=== PATIENT | female | born 1955 | race Caucasian/White ===

== ENCOUNTER 2016-10-16 16:52 | Emergency (ER) | payer BC ==
[~2016-10-16] VITALS: Ht 162.6 cm; Wt 56.7 kg
[2016-10-16] MEDS ORDERED: MODAFINIL (17:00)
--- NOTE | 2016-10-16 17:14 | NUR ---
1706-Patient is seen drinking soda, NAD, pending MD evaluation.
[2016-10-16] MEDS ORDERED: IBUPROFEN 600 MG TABLET PO ONE (17:15)
[2016-10-16] MEDS ORDERED: ONDANSETRON ODT 4 MG TAB.RAPDIS SL ONE (17:15)
[2016-10-16] MEDS ORDERED: ONDANSETRON ODT 4 MG TAB.RAPDIS ONE (17:22)
[2016-10-16] MEDS ORDERED: IBUPROFEN 600 MG TABLET ONE (17:22)
--- NOTE | 2016-10-16 18:50 | NUR ---
Crutches dispensed. Pt instructed on proper use of crutches. Patient able to demonstrate correct use of crutches. Patient discharged to home in stable conditon. Written and verbal after care instructions given to patient. Patient verbalizes understanding of instructions.
== END 2016-10-16 19:02 | disposition home or self-care (01) ==
LOC: ER 16:52
DX: S92.351A Displaced fracture of fifth metatarsal bone, right foot, initial encounter for closed fracture (principal); F41.9 Anxiety disorder, unspecified; F32.9 Major depressive disorder, single episode, unspecified; Z88.8 Allergy status to other drugs, medicaments and biological substances; Z88.2 Allergy status to sulfonamides; X58.XXXA Exposure to other specified factors, initial encounter; Y93.01 Activity, walking, marching and hiking; Y99.8 Other external cause status; Y92.89 Other specified places as the place of occurrence of the external cause
CPT/HCPCS: 73630; A4663; Q0162

== ENCOUNTER 2016-11-19 09:31 | Inpatient (IN) | payer BC, OTHER ==
[~2016-11-19] VITALS: Ht 162.6 cm; Wt 56.7 kg
[~2016-11-19 09:31] MED LIST: MODAFINIL
--- NOTE | 2016-11-27 20:21 | NUR ---
Admission Note Pt is a 61 year old female admitted to [facility] on 11/27/2016 for Benzo/Subutex/ETOH dependence, arrived on the unit at 2120. Pt reports allergies to Quinolones and Sulfa antibiotics, denies seizure history. Pt was able to provide urine drug screen. Upon admission CIWA 3 and COWS 3, BP: 97/66 HR:87, RR:16, SpO2:96% T:97.9, no pain 0/10, Ht: 5'4", Wt: 125 lbs. Pt reports her primary care provider is Dr. Bhavna Dixon in [place] and her Psychiatrist is Dr. Diaz Cheema in [facility]. Pt reports she does not. Pt denies being hospitalized within the past 30 days. Substance abuse History is as follows: 1. Valium 40mg/daily, last intake of 20mg on 11/27/2016, at this rate for the past 6 weeks. 2. Subutex "An 8th"/daily, last intake of "An 8th" on 11/27/2016, at this rate for the past 6 weeks. 3. Wine "5 glasses of wine/daily, last intake of "2 glasses of wine" on 11/27/2016. When pt does not use, she reports s/s of "I feel sweaty all over, and my entire body hurts, irritability, and a lot of anxiety". Pt reports longest sobriety period was for 2-3 months in 2016. Pt trigger to use is d/t her break up 4 years ago with her boyfriend, pt also states her stressful job causes her to use. Treatment history is as follows: 1. [facility] [place], 2016 for 4 days 2. [facility], 2015 6 days 3. Home Detox by Dr. Villatoro, 2017 PMH: Anxiety, appendectomy, double mastectomy & breast reconstruction in 2006, Hepatic Adenoma (benign tumor) 2007, Hysterectomy and Fibroidectomy. Home medications reconciled. Upon assessment, pt presents with anxiety, fatigue, skin noted to be flushed, SOB/chest pain, face flushed, skin intact - clammy/sweaty. Pt wears a boot on right foot d/t tripping over rocks while walking on rocks about 1 and half ago. Pt ambulates with steady gait. Pt denies SI/HI. Educational information provided and left at beside, pt oriented to room and encouraged to notify staff with any concerns. Safety measures in place, call light within reach, side rails up x2, bed locked and in low position. Will continue to monitor.
--- NOTE | 2016-11-27 21:00 | NUR ---
Pre-Admission Note Explained unit protocols regarding medications and vital signs Q4H. Pt verbalizes understanding. [facility], also reported use of Subutex, & ETOH. BP:97/66 HR:87, RR:16, SpO2:96% T:97.9, no pain 0/10, Ht: 5'4", Wt: 125 lbs. Will continue with admission upon pt arrival on the unit.
[2016-11-27 21:20] VITALS: BP 97/66
[2016-11-27] MEDS ORDERED: MAG HYDROX/AL HYDROX/SIMETH 30 ML LIQUID UDC PO PRN (23:00)
[2016-11-27] MEDS ORDERED: diphenhydrAMINE 50 MG CAPSULE PO PRN (23:00)
[2016-11-27] MEDS ORDERED: DICYCLOMINE HCL 20 MG TABLET PO PRN (23:00)
[2016-11-27] MEDS ORDERED: LORAZEPAM 2 MG/1 ML VIAL IM PRN (23:00)
[2016-11-27] MEDS ORDERED: ACETAMINOPHEN 325 MG TABLET PO PRN (23:00)
[2016-11-27] MEDS ORDERED: ONDANSETRON ODT 4 MG TAB.RAPDIS SL PRN (23:00)
[2016-11-27] MEDS ORDERED: LOPERAMIDE HCL 2 MG CAPSULE PO PRN (23:00)
[2016-11-27] MEDS ORDERED: MAGNESIUM HYDROXIDE 30 ML LIQUID UDC PO PRN (23:00)
[2016-11-27] MEDS ORDERED: THIAMINE HCL 200 MG/2 ML VIAL IM ONE (23:00)
[2016-11-27] MEDS ORDERED: LORAZEPAM 1 MG TABLET PO PRN ×2 (23:00)
[2016-11-28] VITALS: BP 90/59
--- NOTE | 2016-11-28 | NUR ---
Vital Signs BP 90/59, pulse 67, SpO2 96%, respirations 16, temp 97.6, no pain 0/10 CIWA/COWS deferred d/t pt sleeping to assess while pt is awake as ordered. Safety measures in place, Will continue to monitor.
[2016-11-28 00:53] LABS: *AMPHETAMINE, URINE NEGATIVE (NEGATIVE); *BARBITURATE, URINE NEGATIVE (NEGATIVE); *CANNABINOID, URINE NEGATIVE (NEGATIVE); *COCCAINE, URINE NEGATIVE (NEGATIVE); *OPIATE, URINE NEGATIVE (NEGATIVE); *PHENCYCLIDINE SCREEN,URINE NEGATIVE (NEGATIVE)
[2016-11-28 04:00] VITALS: BP 96/60
--- NOTE | 2016-11-28 04:00 | NUR ---
Vital Signs BP 96/60, pulse 73, SpO2 97%, respirations 16, temp 98.1, no pain 0/10 CIWA/COWS deferred d/t pt sleeping to assess while pt is awake as ordered. Safety measures in place, Will continue to monitor.
[2016-11-28] MEDS ORDERED: LOPE1TAB46 PO (04:25)
[2016-11-28] MEDS ORDERED: BUPR8TAB4 SL (04:25)
[2016-11-28] MEDS ORDERED: DIAZ10TA4 PO (04:25)
[2016-11-28] MEDS ORDERED: ESCI10TA55 PO (04:25)
--- NOTE | 2016-11-28 06:28 | NUR ---
PRN Administration Pt reported feeling anxious. Vistaril 50mg PRN administered Safety measures in place. will endorse to day shift nurse to monitor effectiveness.
[2016-11-28] MEDS ORDERED: HYDROXYZINE PAMOATE 25 MG CAPSULE PO PRN (06:30)
[2016-11-28] MEDS ORDERED: HYDROXYZINE PAMOATE 25 MG CAPSULE ONE (06:37)
--- NOTE | 2016-11-28 07:00 | NUR ---
End of Shift Pt is a 61 year old female admitted for Benzo/Subutex/ETOH dependence. Pt reported using Valium 40mg/daily, last intake of 20mg on 11/27/2016, Subutex "An 8th"/daily, last intake of "An 8th" on 11/27/2016, and Wine "5 glasses of wine/daily. Pt reports allergies to Quinolones and Sulfa antibiotics, denies seizure history, regular diet and full code. PMH: Anxiety, appendectomy, double mastectomy & breast reconstruction in 2006, Hepatic Adenoma (benign tumor) 2007, Hysterectomy and Fibroidectomy. Pt wears a right boot d/t tripping over rocks while walking on rocks about 1 and half months ago. Vistaril 50mg PRN administered for anxiety, Pt refused Vitamin B1 inj upon admission, education of risks/benefits provided. COWS 3 & CIWA 3. Pt slept for 6 hours, intake of 1000 ml PO, voids x1 and stool x0. Safety measures in place, call light within reach, side rails up x2, bed locked and in low position. Endorsed to day shift nurse
--- NOTE | 2016-11-28 07:28 | NUR ---
VISTARIL REASSESSMENT Pt received PRN Vistaril by night nurse, Upon reassessment pt reported medication effective, Feeling less anxious. Will cont to monitor.
[2016-11-28] MEDS: LOPERAMIDE HCL 2 MG CAPSULE PO PRN (07:38)
--- NOTE | 2016-11-28 07:38 | NUR ---
PRN IMODIUM Pt c/o of diarrhea x2, PRN Imodium 2mg administered as ordered. Will cont to monitor and reassess.
--- NOTE | 2016-11-28 07:50 | NUR ---
START OF SHIFT NOTE Received pt alert awake oriented x4 in stable condition. Pt reports allergies to Quinolones and Sulfa antibiotics, denies seizure history, regular diet and full code. Pt admitted for Benzo/Subutex/ETOH dependence. Pt reported using Valium 40mg/daily, last intake of 20mg on 11/27/2016, Subutex "An 8th"/daily, last intake of "An 8th" on 11/27/2016, and Wine "5 glasses of wine/daily. Pt reported PMH: Anxiety, appendectomy, double mastectomy & breast reconstruction in 2006, Hepatic Adenoma (benign tumor) 2007, Hysterectomy and Fibroidectomy. Pt wears a right boot d/t tripping over rocks while walking on rocks about 1 and half months ago. Pt received PRN Vistaril for anxiety, Slept for 6 hours, Last CIWA-3. COWS-3. Educate the pt regarding plan of the day and medications regimen with good verbal understanding. All safety measures in place, call light within reach. Will cont to monitor.
[2016-11-28 08:00] VITALS: BP 119/72
[2016-11-28 08:18] LABS: ETHANOL < 3 MG/DL (0-0)
[2016-11-28 08:28] LABS: ALANINE AMINOTRANSFERASE 26 U/L (14-59); ALKALINE PHOSPHATASE 99 U/L (50-136); AMYLASE 58 U/L (25-115); ASPARTATE AMINOTRANSFERASE 24 U/L (15-37); BASOPHILS % (AUTO) 0.2 % (0.0-2.0); BILIRUBIN,TOTAL 0.3 mg/dL (0.2-1.0); CARBON DIOXIDE 32 mmol/L (21-32); CHLORIDE 102 mmol/L (98-107); CREATININE 0.7 mg/dL (0.6-1.3); EOSINOPHILS # (AUTO) 0.1 K/uL (0.0-0.7); EOSINOPHILS % (AUTO) 1.7 % (0.0-7.0); GLUCOSE 93 mg/dL (74-106); HEMATOCRIT 37.8 % (37-47); HEMOGLOBIN 12.7 G/DL (12.0-16.0); LIPASE 141 U/L (73-393); LYMPHOCYTES % (AUTO) 29.6 % (20.5-51.5); MAGNESIUM 1.9 mg/dL (1.8-2.4); MEAN CORPUSCULAR HEMOGLOBIN 30.6 UUG (27.0-31.0); MEAN CORPUSCULAR HGB CONC 34 g/dL (32.0-37.0); MEAN CORPUSCULAR VOLUME 91.2 FL (81.0-99.0); MONOCYTES # (AUTO) 0.5 K/UL (0.1-1.30); MONOCYTES % (AUTO) 6.8 % (0.0-11.0); NEUTROPHILS % (AUTO) 61.7 % (38.5-71.5); PLATELET COUNT (AUTO) 304 K/UL (150-450); RED BLOOD CELL COUNT(AUTO) 4.15 MIL/UL (4.2-5.4); TOTAL PROTEIN, SERUM 7.1 g/dL (6.4-8.2); UREA NITROGEN, BLOOD 15 mg/dL (7-18); WHITE BLOOD COUNT (AUTO) 6.6 K/UL (4.0-11.2)
--- NOTE | 2016-11-28 08:38 | NUR ---
REASSESSMENT Pt reported medication effective diarrhea subside. Safety measures in place, call light within reach. Will cont to monitor.
[2016-11-28 08:40] LABS: THYROID STIMULATING HORMONE 2.105 mIU/mL (0.358-3.740)
[2016-11-28] MEDS: THIAMINE HCL 100 MG TABLET PO SCH (08:42)
[2016-11-28] MEDS: FOLIC ACID 1 MG TABLET PO SCH (08:42)
[2016-11-28] MEDS: MULTIVITAMINS,THERAPEUTIC TABLET PO SCH (08:42)
[2016-11-28] MEDS ORDERED: TUBERCULIN,PURIF.PROT.DERIV. 5 TU/0.1 ML TEST ID ONE (09:00)
[2016-11-28] MEDS ORDERED: DIAZEPAM 10 MG TABLET PO PRN ×2 (10:45)
[2016-11-28] MEDS ORDERED: DIAZEPAM 5 MG TABLET PO PRN (10:45)
[2016-11-28] MEDS: DIAZEPAM 10 MG TABLET PO SCH ×4 (11:41→20:20)
[2016-11-28] MEDS: ESCITALOPRAM OXALATE 10 MG TABLET PO SCH ×2 (11:54→16:13)
--- NOTE | 2016-11-28 11:54 | NUR ---
PRN BENTYL Pt c/o of stomach cramps, no diarrhea reported. Administered PRN Bentyl 20mg as ordered. Will cont to monitor and reassess.
--- NOTE | 2016-11-28 11:54 | NUR ---
NEW ORDER Pt was seen by Dr. Sheppard with new order of Lexapro 10mg, administered medication as ordered.
[2016-11-28 12:00] VITALS: BP 125/72
--- NOTE | 2016-11-28 12:54 | NUR ---
REASSESSMENT Pt reported medication effective stomach cramps decreased. Will cont to monitor.
[2016-11-28] MEDS: GABAPENTIN 100 MG CAPSULE PO SCH (14:51)
[2016-11-28] MEDS: IBUPROFEN 400 MG TABLET PO PRN (14:55)
--- NOTE | 2016-11-28 14:55 | NUR ---
ARTHUR HASSAN Pt c/o of body aches, PRN Motrin 400mg Po administered as ordered. Will cont to monitor and reassess. Addendum: 11/28/16 at 1704 by RAQUEL ROBERSON LVN pt reported pain level 4/10.
[2016-11-28] MEDS ORDERED: GABAPENTIN 300 MG CAPSULE PO SCH ×4 (15:00→21:00)
--- NOTE | 2016-11-28 15:55 | NUR ---
REASSESSMENT Pt reported medication effective pain decreased to 1/10. Will cont to monitor.
[2016-11-28 16:00] VITALS: BP 112/77
--- NOTE | 2016-11-28 19:13 | NUR ---
END OF SHIFT NOTE Pt started on 5 days Valium taper and tolerating well. pt presented with body aches, diarrhea, stomach cramps. Pt given PRN Imodium, Bentyl, Motrin. Pt rested in bed most of the shift. She did not attend any groups and activities, encourage pt to attend groups and activities to learn new coping skills with good verbal understanding. Last CIWA-6, COWS-5. Encourage pt to drink fluids as tolerated. Pt attended some groups and activities. Vital signs stable. All safety measures in place, Call light within reach. Pt endorsed to night nurse in stable condition.
[2016-11-28 20:00] VITALS: BP 121/72
--- NOTE | 2016-11-28 20:00 | NUR ---
Start of Shift Pt is a 61 year old female admitted for Benzo/Opiate/ETOH dependence, placed on 5 day Valium taper. Pt reported using Valium 40mg/daily, Subutex "An 8th"/daily and Wine "5 glasses of wine/daily. Allergies to Quinolones and Sulfa antibiotics, denies seizure history, regular diet and full code. PMH: Anxiety, appendectomy, double mastectomy & breast reconstruction in 2006, Hepatic Adenoma (benign tumor) 2007, Hysterectomy and Fibroidectomy. Pt wears a right boot d/t tripping over rocks while walking on rocks about 1 and half months ago, gait is steady, pt reports feeling anxiety, reports feeling chills and sweating, tremors felt upon touch, skin flushed, respirations even/unlabored, denies SOB/chest pain. Safety measures in place, call light within reach, side rails up x2, bed locked and in low position. Will continue to monitor.
[2016-11-28] MEDS ORDERED: GABAPENTIN 100 MG CAPSULE PO SCH (21:00)
[2016-11-29] VITALS: BP 96/59
--- NOTE | 2016-11-29 | NUR ---
Vital Signs BP 96/59, pulse 62, SpO2 96%, respirations 16, temp 97.9, no pain 0/10 CIWA/COWS deferred d/t pt sleeping to assess while pt is awake as ordered. Safety measures in place, Will continue to monitor.
[2016-11-29 04:00] VITALS: BP 117/66
--- NOTE | 2016-11-29 04:00 | NUR ---
Vital Signs BP 117/66, pulse 65, SpO2 98%, respirations 14, temp 97.8, no pain 0/10 CIWA/COWS deferred d/t pt sleeping to assess while pt is awake as ordered. Safety measures in place, Will continue to monitor.
--- NOTE | 2016-11-29 06:20 | NUR ---
PRN Administration CIWA 7 - Pt reports anxiety, chills, sweating, aches throughout body, irritation noted. Pt states, "I cannot deal with this, I need my medication now!" Valium 5mg PRN administered. Imodium 2mg PRN administered for reports of diarrhea Will endorse onto day shift nurse to monitor effectiveness.
[2016-11-29] MEDS: LOPERAMIDE HCL 2 MG CAPSULE PO PRN ×2 (06:41→11:27)
--- NOTE | 2016-11-29 07:00 | NUR ---
End of Shift Pt is a 61 year old female admitted for Benzo/Opiate/ETOH dependence, placed on 5 day Valium taper. Pt reported using Valium 40mg/daily, Subutex "An 8th"/daily and Wine "5 glasses of wine/daily. Allergies to Quinolones and Sulfa antibiotics, denies seizure history, regular diet and full code. PMH: Anxiety, appendectomy, double mastectomy & breast reconstruction in 2006, Hepatic Adenoma (benign tumor) 2007, Hysterectomy and Fibroidectomy. Pt wears a right boot d/t tripping over rocks while walking on rocks about 1 and half months ago, gait is steady, pt reported feeling anxious, reported feeling chills and sweating, tremors felt upon touch scheduled taper medications administered. At 0620, Pt reports anxiety, chills, sweating, aches throughout body, irritation noted. Pt states, I cannot deal with this, I need my medication now! CIWA 7. Valium 5mg PRN and Imodium 2mg PRN administered for reports of diarrhea. Pt remains isolative to room, encouraged to participate in plan of care. Pt slept for 7 hours, intake of 1047 ml PO, voids x1and stool x1. Safety measures in place, call light within reach, side rails up x2, bed locked and in low position. Endorsed to day shift nurse.
--- NOTE | 2016-11-29 07:44 | NUR ---
BEGINNING OF SHIFT/PRN REASSESSMENTS Patient endorsement report received from overnight cashier nurse, all pertinent information discussed. Patient is a 61 year old male admitted on 11/27/2016, Patient currently Ongoing 5 day Valium taper as ordered and is scheduled to begin day 2 of taper, patient with admitting Dx: bzo, etoh, opiate dependence. Patient with last cow score of:7, and last ciwa score of: 6. Patient received PRN: Valium and Imodium at 0620, medications reassessed, as per patient medications effective, feels less anxious currently ciwa score of: 5. Patient denies episodes of diarrhea, will continue to monitor closely. patient slept for 7 hours. Patient received in room, awake alert and oriented x4, educated regarding plan of care and medication regimen for the day with good verbal understanding. Safety measures in place. call light kept with in reach, will continue to monitor closely.
[2016-11-29 08:19] VITALS: BP 121/82
[2016-11-29] MEDS: ESCITALOPRAM OXALATE 10 MG TABLET PO SCH ×2 (09:04→17:15)
[2016-11-29] MEDS: MODAFINIL 100 MG TABLET PO SCH (09:04)
[2016-11-29] MEDS: GABAPENTIN 100 MG CAPSULE PO SCH ×3 (09:04→20:19)
[2016-11-29] MEDS: THIAMINE HCL 100 MG TABLET PO SCH (09:04)
[2016-11-29] MEDS: MULTIVITAMINS,THERAPEUTIC TABLET PO SCH (09:04)
[2016-11-29] MEDS: FOLIC ACID 1 MG TABLET PO SCH (09:04)
[2016-11-29] MEDS: DIAZEPAM 10 MG TABLET PO SCH ×3 (09:05→20:19)
--- NOTE | 2016-11-29 11:27 | NUR ---
PRN IMODIUM Patient reported one episode of diarrhea, abdomen is soft and non distended. no episodes of N/V as per patient she has Irritable bowel syndrome and experiences diarrhea often, as per patient to control the diarrhea she takes psyllium powder at night and Lomotil in the morning, Dr. Patino was notified. Will continue to monitor closely. safety measures in place.
--- NOTE | 2016-11-29 12:27 | NUR ---
IMODIUM REASSESSMENT Patient reports medication with relief, no further episodes of diarrhea, will continue to monitor closely. safety measure in place. patient encouraged to increase PO fluid intake as tolerated.
[2016-11-29 13:51] VITALS: BP 127/81
--- NOTE | 2016-11-29 14:15 | NUR ---
This comic book writer encouraged the client to start to attend groups. Client responded that she felt shy and anxious about attending.
[2016-11-29 17:00] VITALS: BP 111/74
--- NOTE | 2016-11-29 19:10 | NUR ---
END OF SHIFT Patient alert and oriented x4, vital signs were stable during shift. patient compliant with therapeutic plan of care. 0900 Assessment patient presented with:mild bone and joint aches, dilated pupils, loose stool, tremors that can be felt but not seen, irritable, anxiety, barely sweating and agitation with cow score of: 9 and ciwa score of: 9 ; 1300 assessment patient presented with: mild bone and joint aches, moist eyes, tremors that can be felt but not seen, irritable, anxiety, barely sweating and agitation with cow score of: 5 and ciwa score of: 9. 1700 assessment patient presented with: c/o chills, mild bone and joint aches, moist eyes, tremors that can be felt but not seen, mild anxiety, mild agitation, and barely sweating with cow score of: 5 and ciwa score of: 4. Patient continues on 5 day Valium taper as ordered, medication well tolerated, no ASE noted. Patient received PRN: Imodium as ordered for diarrhea, medication was effective one hour post administration. Patient encouraged to attend group therapies/sessions to learn new coping skills to prevent relapse. patient denies any SI/HI. safety measures in place. call light kept with in reach. patient endorsed to vp rheumatology nurse, all pertinent information discussed. will continue to monitor closely.
[2016-11-29 20:00] VITALS: BP 122/70
--- NOTE | 2016-11-29 20:00 | NUR ---
Start of Shift Pt is a 61 year old female admitted for Benzo/Opiate/ETOH dependence, placed on 5 day Valium taper. Pt reported using Valium 40mg/daily, Subutex "An 8th"/daily and Wine "5 glasses of wine/daily. Allergies to Quinolones and Sulfa antibiotics, denies seizure history, regular diet and full code. PMH: Anxiety, appendectomy, double mastectomy & breast reconstruction in 2006, Hepatic Adenoma (benign tumor) 2007, Hysterectomy and Fibroidectomy. Pt wears a right boot d/t tripping over rocks while walking on rocks about 1 and half months ago, gait is steady, reports feeling chills throughout body, tremors felt upon touch, skin clammy, respirations even/unlabored, denies SOB/chest pain. Safety measures in place, call light within reach, side rails up x2, bed locked and in low position. Will continue to monitor.
[2016-11-30] VITALS: BP 111/68
--- NOTE | 2016-11-30 | NUR ---
Vital Signs BP 111/68, pulse 69, SpO2 97%, respirations 16, temp 98, no pain 0/10 CIWA/COWS deferred d/t pt sleeping to assess while pt is awake as ordered. Safety measures in place, Will continue to monitor.
[2016-11-30 04:00] VITALS: BP 102/68
--- NOTE | 2016-11-30 04:00 | NUR ---
Vital Signs BP 102/68, pulse 79, SpO2 97%, respirations 16, temp 98.1, no pain 0/10 CIWA/COWS deferred d/t pt sleeping to assess while pt is awake as ordered. Safety measures in place, Will continue to monitor.
[2016-11-30 04:08] LABS: HEPATITIS B SURFACE AG Negative (Negative)
[2016-11-30] MEDS: DIPHENOXYLATE HCL/ATROP SULF TABLET PO SCH (06:17)
[2016-11-30] MEDS: DIAZEPAM 5 MG TABLET PO SCH ×4 (06:18→20:17)
[2016-11-30] MEDS: IBUPROFEN 400 MG TABLET PO PRN (06:21)
--- NOTE | 2016-11-30 06:21 | NUR ---
Motrin PRN Pt reported muscle pain in lower legs, rated 5/10 Motrin 400mg PRN administered. safety measures in place, will endorse onto day shift nurse to monitor effectiveness.
--- NOTE | 2016-11-30 07:00 | NUR ---
End of Shift Pt is a 61 year old female admitted for Benzo/Opiate/ETOH dependence, placed on 5 day Valium taper. Pt reported using Valium 40mg/daily, Subutex "An 8th"/daily and Wine "5 glasses of wine/daily. Allergies to Quinolones and Sulfa antibiotics, denies seizure history, regular diet and full code. PMH: Anxiety, appendectomy, double mastectomy & breast reconstruction in 2006, Hepatic Adenoma (benign tumor) 2007, Hysterectomy and Fibroidectomy. Pt wears a right boot d/t tripping over rocks while walking on rocks about 1 and half months ago, gait is steady. During shift pt reported feeling chills throughout body, tremors felt upon touch, skin clammy scheduled taper medications administered, CIWA 5 and CIWA 5. Motrin 400mg PRN administered for aches/pain in legs. Pt continues to remain isolative to room, encouraged to participate in treatment plan. Pt slept for 7 hours, intake of 2050ml PO, voids x3 and stool x0. Safety measures in place, call light within reach, side rails up x2, bed locked and in low position. Endorsed to day shift nurse.
--- NOTE | 2016-11-30 07:21 | NUR ---
Re-assessment; Patient denies pain at this time, PRN Motrin is effective.
--- NOTE | 2016-11-30 07:30 | NUR ---
Start of shift note; Received report from night nurse. Patient is a 61 year old female admitted on 11/27/16 for Benzodiazepine withdrawals. Patient was placed on a 5 day modified Valium taper, no adverse reactions noted. Patient reported history of anxiety, appendectomy, double mastectomy and breast reconstruction, hysterectomy and fibroidectomy. Patient reported to be allergic to Sulfa drugs and Quinolones. Skin is intact. Patient's last COWS score is 5 and last CIWA is 5 at 0400 per nurse endorsement. Patient slept for 7 hours. Patient is on fall and seizure precaution. Bed in lowest position, call light within reach. Will continue to monitor patient.
[2016-11-30 08:00] VITALS: BP 100/70
[2016-11-30] MEDS: THIAMINE HCL 100 MG TABLET PO SCH (08:00)
[2016-11-30] MEDS: FOLIC ACID 1 MG TABLET PO SCH (08:00)
[2016-11-30] MEDS: MODAFINIL 100 MG TABLET PO SCH (08:00)
[2016-11-30] MEDS: ESCITALOPRAM OXALATE 10 MG TABLET PO SCH (08:01)
[2016-11-30] MEDS: PSYLLIUM SEED PACKET PO SCH (08:01)
[2016-11-30] MEDS: GABAPENTIN 100 MG CAPSULE PO SCH ×3 (08:01→20:17)
[2016-11-30] MEDS: MULTIVITAMINS,THERAPEUTIC TABLET PO SCH (08:01)
[2016-11-30] MEDS ORDERED: DIAZEPAM 5 MG TABLET PO SCH (09:00)
[2016-11-30 12:00] VITALS: BP 124/74
[2016-11-30 16:00] VITALS: BP 116/73
--- NOTE | 2016-11-30 18:49 | NUR ---
End of shift note; Patient is AOX4. Patient remained compliant with treatment plan and medication regime. Medications were effective in reducing withdrawal symptoms. Patient's last COWS score is 2 and CIWA score of 3. All safety measures secured. Met all needs.
[2016-11-30 20:00] VITALS: BP 108/75
--- NOTE | 2016-11-30 20:00 | NUR ---
START OF SHIFT NOTE: Patient endorsed by day shift nurse. Report received. Patient is a 61 year female admitted to [facility] on 11/27/16 for Benzodiazepines, Alcohol and Buprenorphine Dependence, placed on 5 day Valium Taper since 11/28/16, which tolerated well. Patient remains compliant with therapy, medications, and diet regimen. Patient reports Allergy to Sulfa and Quinolones. Patient has Full Code and Regular Diet. Patient is on Fall and Seizures Precautions. Patient denies History of Seizures. Past medical history: Anxiety, Opiate use disorder, Breast tumor (DCIS), s/p BL Mastectomy, Irritable bowel syndrome, diarrhea predominant, Hepatic adenoma (hx of HRT after menopause), Rheumatic fever as a child. Past Surgical History: Bilateral mastectomy, Hysterectomy, Appendectomy, Resection of hepatic adenoma. Upon endorsement, patient is A&Ox4 and cooperative. Speech is soft and clear. COWS 7, CIWA 7 at 2000: Patient c/o anxiety, agitation, nervousness, very mild headache, tremors, stomach cramps, sweats, and body aches. Patient denies SI/HI. Patient has VS WNL. Respirations even and unlabored. Lungs Sounds are clear thoroughly. Patient denies SOB and chest pain. Heart rate is regular, no murmur noted. Bowel Sounds is active in all 4 quadrants. Last Bowel Movement was "11/30/16 at 1700". Skin is intact, warm and dry. Encouraged fluids intake as tolerated. Encouraged to attend groups activities. Education provided for hand washing and fall prevention in the hospital. Patient returned his knowledge back by verbalized understanding. All needs met. Safety measures in the place. Call light within reach, bed in the lowest position, and locked, side rails up bilaterally. Will continue to monitor closely.
[2016-12-01] VITALS: BP 112/70
[2016-12-01 04:00] VITALS: BP 111/79
[2016-12-01] MEDS: DIAZEPAM 5 MG TABLET PO SCH ×3 (05:16→20:03)
[2016-12-01] MEDS: DIPHENOXYLATE HCL/ATROP SULF TABLET PO SCH (05:20)
--- NOTE | 2016-12-01 06:58 | NUR ---
END OF SHIFT NOTE: Patient endorsed to day shift nurse in stable condition. Report given. Patient is a 61 year female admitted to [facility] on 11/27/16 for Benzodiazepines, Alcohol and Buprenorphine Dependence, continue 5 day Valium Taper since 11/28/16, which tolerated well. Patient remains compliant with therapy, medications, and diet regimen. Patient reports Allergy to Sulfa and Quinolones. Patient has Full Code and Regular Diet. Patient is on Fall and Seizures Precautions. Patient denies History of Seizures. Past medical history: Anxiety, Opiate use disorder, Breast tumor (DCIS), s/p BL Mastectomy, Irritable bowel syndrome, Hepatic adenoma (hx of HRT after menopause), Rheumatic fever as a child. Past Surgical History: Bilateral mastectomy, Hysterectomy, Appendectomy, Resection of hepatic adenoma. Last COWS decreased from 7 to 2 at 0400, CIWA decreased from 7 to 2 at 0400. Patient presented with anxiety, agitation, nervousness, mild headache, body aching, tremors, that can be felt, not observe, and sweating. Patient denies SI/HI. VS at 0400: T: 97.9, BP: 111/79, HR: 74, RA O2SAT: 96%, RR: 14, pain "0/10". Respirations are even and unlabored. Skin is intact, warm and dry to touch. Encouraged to fluids intake, as tolerated. Education provided for hand washing and fall prevention in the hospital. Patient returned his knowledge back by verbalized understanding. Patient slept 8 hours 20 minutes, intake 500 ml, voided x3. All needs met. Safety measures in the place by hospital policy: bed in the lowest position, and locked, padded bed rails up x2.
--- NOTE | 2016-12-01 07:10 | NUR ---
Start of shift note; Received report from night nurse. Patient is AOX4. Patient is a 61 year old female admitted on 11/27/16 for Benzodiazepine withdrawals. Patient was placed on a modified Valium taper, no adverse reactions noted. Patient reported history of anxiety, appendectomy, double mastectomy and breast reconstruction, hysterectomy and fibroidectomy. Patient reported to be allergic to Sulfa drugs and Quinolones. Skin is intact. Patient's last COWS score is 2 and last CIWA is 2 at 0400 per nurse endorsement. Patient slept for 8 hours. Patient is on fall and seizure precaution. Bed in lowest position, call light within reach. Will continue to monitor patient.
[2016-12-01] MEDS: LOPERAMIDE HCL 2 MG CAPSULE PO PRN (07:31)
[2016-12-01] MEDS: HYDROXYZINE PAMOATE 25 MG CAPSULE PO PRN ×2 (07:31→15:56)
--- NOTE | 2016-12-01 07:31 | NUR ---
PRN medications; Patient is complaining of having episodes of diarrhea and appears to be very anxious. PRN Imodium 2mg PO given for diarrhea and PRN Vistaril 50mg PO given for anxiety. Will continue to monitor patient for effectiveness of medication.
[2016-12-01 08:00] VITALS: BP 134/68
[2016-12-01] MEDS: PSYLLIUM SEED PACKET PO SCH (08:02)
[2016-12-01] MEDS: GABAPENTIN 100 MG CAPSULE PO SCH ×3 (08:02→20:03)
[2016-12-01] MEDS: MODAFINIL 100 MG TABLET PO SCH (08:02)
[2016-12-01] MEDS: THIAMINE HCL 100 MG TABLET PO SCH (08:03)
[2016-12-01] MEDS: ESCITALOPRAM OXALATE 10 MG TABLET PO SCH (08:03)
[2016-12-01] MEDS: FOLIC ACID 1 MG TABLET PO SCH (08:03)
[2016-12-01] MEDS: MULTIVITAMINS,THERAPEUTIC TABLET PO SCH (08:03)
--- NOTE | 2016-12-01 08:31 | NUR ---
Re-assessment; Patient stated effectiveness of medications, no further episodes of loose stools at this time and patient appears calm and comfortable. Will continue to monitor patient.
[2016-12-01] MEDS ORDERED: DIAZEPAM 5 MG TABLET PO SCH (09:00)
--- NOTE | 2016-12-01 11:30 | NUR ---
New Order; ordered Clonidine 0.1mg PO PRN Q6H to be given for anxiety, agitation, diaphoresis or BP >160/100. Order entered on [facility], currently does not have access to [facility] .
[2016-12-01 12:00] VITALS: BP 97/62
[2016-12-01] MEDS: buPROPion 75 MG TABLET PO SCH (14:04)
--- NOTE | 2016-12-01 14:19 | NUR ---
Therapist encouraged client to attend group therapy today, and reminded client of daily group times.
--- NOTE | 2016-12-01 15:58 | NUR ---
PRN medication; Patient appears anxious and agitated, patient pacing back and forth in the room. PRN Vistaril 50mg PO PRN given for anxiety. Will continue to monitor patient for effectiveness of medication.
[2016-12-01 16:00] VITALS: BP 109/78
--- NOTE | 2016-12-01 16:58 | NUR ---
Re-assessment; Patient stated effectiveness of medication. Patient is calm and comfortable. PRN medication is effective.
--- NOTE | 2016-12-01 18:33 | NUR ---
End of shift note; Patient is AOX4. Patient remained compliant with treatment plan. Medications were effective in reducing withdrawal symptoms. DVT pumps at bedside. Patient's last COWS score is 2 and last CIWA score is 1 at 1600. All safety measures secured. Met all needs.
--- NOTE | 2016-12-01 20:00 | NUR ---
Start of Shift Note: Report received from day shift nurse. Pt is a 61 yo female admitted on 11/27/16 for medically-supervised withdrawal from benzodiazepines, opiates, and ETOH. Pt reports taking 40mg Valium, 1mg Subutex, and drinking 5 glasses of wine daily for six weeks. Pt is on a 5-day Valium taper. Pt received with last COWS=1, CIWA=1, and PRN's Vistaril x2 and Imodium were given during day shift. Pt reports allergy to quinolones and sulfa, is a full code, and is on a regular diet. Pt reports PMHx: anxiety, appendectomy, double mastectomy with reconstruction (2006), hepatic adenoma (2007), and hysterectomy/fibroidectomy. Pt received in room, and reports severe anxiety. Bed is in low position and locked, side rails up x2, call light within reach. Will continue to monitor.
[2016-12-01 20:09] VITALS: BP 128/73
[2016-12-01] MEDS: CLONIDINE HCL 0.1 MG TABLET PO PRN (21:05)
--- NOTE | 2016-12-01 21:10 | NUR ---
PRN Clonidine and PRN Benadryl: Patient complains of increased anxiety. Administered PRN Clonidine as ordered. Patient complains of inability to sleep. Administered PRN Benadryl as ordered. Will continue to monitor.
--- NOTE | 2016-12-01 22:15 | NUR ---
PRN Reassessment: Patient is in bed with eyes closed. Respirations are even and unlabored. No s/s of acute distress noted. PRN clonidine and PRN Benadryl effective AEB patient's ability to rest. Will continue to monitor.
--- NOTE | 2016-12-02 | NUR ---
Vitals Refused, COWS/CIWA Deferred: Patient refuses ordered 00:00 VS assessment. COWS/CIWA deferred for sleep. All safety precautions are in place. Will continue to monitor. Addendum: 12/02/16 at 0033 by JOHN ISSA RN Amended: Links added.
[2016-12-02 04:00] VITALS: BP 118/68
--- NOTE | 2016-12-02 04:00 | NUR ---
COWS/CIWA Deferred: COWS/CIWA deferred for sleep. V/S stable. All safety precautions are in place. Will continue to monitor. Addendum: 12/02/16 at 0424 by JOHN ISSA RN Amended: Links added.
[2016-12-02] MEDS: DIPHENOXYLATE HCL/ATROP SULF TABLET PO SCH (06:10)
[2016-12-02] MEDS: DIAZEPAM 5 MG TABLET PO SCH ×2 (06:10→20:10)
--- NOTE | 2016-12-02 07:11 | NUR ---
End of Shift Note: Pt is a 61 yo female admitted to [facility] on 11/27/16 for medically-supervised withdrawal from benzodiazepines, opiates, and ETOH. Pt reports PMHx of anxiety, appendectomy, double mastectomy with reconstruction (2006), hepatic adenoma (2007), and hysterectomy/fibroidectomy. Pt reports allergy to quinolones and sulfa. Pt is a full code. Pt is on a regular diet. Pt reports taking 40mg Valium, 1mg Subutex, and drinking 5 glasses of wine daily for six weeks. Pt is on a 5-day Valium taper. Scheduled medication regime effectively managed s/s of withdrawal this shift, in addition to PRN Clonidine for anxiety. Last COWS=2, CIWA=3 at 20:00. V/S stable throughout shift. Total fluid intake this shift: 700 ml; output: urine x 2 and BM x 1. PRN Benadryl was given for inability to sleep, which was effective and pt slept 8 hours this shift. Pt is currently in bed, all needs have been attended and met. Pt endorsed to day shift nurse.
--- NOTE | 2016-12-02 07:53 | NUR ---
START OF SHIFT Received patient this morning alert and oriented x4. Patient awake in bed states she feels "edgy" and she is requesting Vistaril. She is on 5 day Valium taper. PRN Clonidine and Benadryl given per night nurse. Patient slept 8 hours. Last CIWA 3 COWS 2 per shift superintendent. Encouraged patient to drink increased amounts of fluids this shift. Encouraged attendance of groups and activities. Will provide safe and supportive environment. Informed patient to notify RN if s/s of w/d worsen. Will continue to monitor.
[2016-12-02 08:00] VITALS: BP 113/80
[2016-12-02] MEDS: PSYLLIUM SEED PACKET PO SCH (08:00)
[2016-12-02] MEDS: ESCITALOPRAM OXALATE 10 MG TABLET PO SCH (08:00)
[2016-12-02] MEDS: MULTIVITAMINS,THERAPEUTIC TABLET PO SCH (08:00)
[2016-12-02] MEDS: MODAFINIL 100 MG TABLET PO SCH (08:00)
[2016-12-02] MEDS: THIAMINE HCL 100 MG TABLET PO SCH (08:00)
[2016-12-02] MEDS: FOLIC ACID 1 MG TABLET PO SCH (08:00)
[2016-12-02] MEDS: GABAPENTIN 100 MG CAPSULE PO SCH ×3 (08:00→20:10)
[2016-12-02] MEDS: HYDROXYZINE PAMOATE 25 MG CAPSULE PO PRN ×3 (08:00→18:07)
[2016-12-02] MEDS: buPROPion 75 MG TABLET PO SCH (08:01)
--- NOTE | 2016-12-02 08:02 | NUR ---
PRN MEDS 50 mg Vistaril given for c/o anxiety. patient reports feeling "on edge" Will reassess
--- NOTE | 2016-12-02 08:40 | NUR ---
PRN REASSESSMENT Patient reports her anxiety has gotten better. Watching TV calmly in bed. Will monitor
[2016-12-02] MEDS ORDERED: DIAZEPAM 5 MG TABLET PO SCH (09:00)
[2016-12-02 12:00] VITALS: BP 119/80
[2016-12-02] MEDS ORDERED: GABAPENTIN 100 MG CAPSULE PO ONE (13:45)
--- NOTE | 2016-12-02 14:02 | NUR ---
PRN MEDS 50 mg Vistaril given for c/o anxiety. patient reports it helps calm her down and shes feeling mildly anxious. will reassess
--- NOTE | 2016-12-02 14:40 | NUR ---
PRN REASSESSMENT Patient reports improvement in anxiety. patient resting calmly in bed. medication effective. will monitor
[2016-12-02 16:00] VITALS: BP 103/72
--- NOTE | 2016-12-02 18:12 | NUR ---
PRN MEDS pt given 50 mg Vistaril per pt request for anxiety. Will reassess
--- NOTE | 2016-12-02 18:26 | NUR ---
END OF SHIFT NOTE Patient continued on 5 day Valium taper and tolerating well. PRN Vistaril given x3 with effectiveness. Patient requests Vistaril around the clock to manage anxiousness. Patient presents happier during shift and states readiness to discharge. Last COWS 1 CIWA 1. Patient increased fluid intake as encouraged. All needs have been met. Vitals stable. Safety measures in place. Will endorse to oncoming nurse.
--- NOTE | 2016-12-02 18:44 | NUR ---
PRN REASSESSMENT Patient states she is no longer anxious. Patient presents happy and calm. Will endorse.
--- NOTE | 2016-12-02 19:25 | NUR ---
Start of Shift Note: Report received from day shift nurse. 61F admitted for medically-supervised withdrawal from Valium, Subutex, and ETOH; pt continues on a 5-day Valium taper. Endorsed from day shift that pt continues with anxiety and PRN Vistaril was given x3. Last day shift COWS=1, CIWA=1. Received pt in room, and reports severe anxiety. All safety precautions are in place. Will continue to monitor.
[2016-12-02] MEDS: CLONIDINE HCL 0.1 MG TABLET PO PRN (19:29)
--- NOTE | 2016-12-02 19:29 | NUR ---
PRN Clonidine: Patient complains of increased anxiety. Administered PRN clonidine as ordered. Will continue to monitor.
[2016-12-02 20:00] VITALS: BP 109/74
--- NOTE | 2016-12-02 20:30 | NUR ---
PRN Reassessment: Patient reports that PRN clonidine was effective in reducing anxiety.
--- NOTE | 2016-12-03 | NUR ---
Vitals Refused, COWS/CIWA Deferred: Patient refuses V/S assessment at this time. Patient educated on risks and benefits but still refused. COWS/CIWA deferred for sleep. All safety precautions in place. Will continue to monitor. Addendum: 12/03/16 at 0247 by JOHN ISSA RN Amended: Links added.
--- NOTE | 2016-12-03 04:00 | NUR ---
Vitals Refused, COWS/CIWA Deferred: Patient refuses 04:00 V/S. Patient educated on risks/benefits but continued to refuse. COWS assessment is deferred for sleep. All safety precautions are in place. Will continue to monitor. Addendum: 12/03/16 at 0634 by JOHN ISSA RN Amended: Links added.
[2016-12-03] MEDS: CLONIDINE HCL 0.1 MG TABLET PO PRN ×2 (05:59→18:01)
[2016-12-03] MEDS: DIPHENOXYLATE HCL/ATROP SULF TABLET PO SCH (05:59)
[2016-12-03] MEDS: HYDROXYZINE PAMOATE 25 MG CAPSULE PO PRN ×2 (06:00→13:54)
--- NOTE | 2016-12-03 06:06 | NUR ---
PRN Clonidine and PRN Vistaril: Patient complains of severe anxiety. Administered PRN Clonidine and PRN Vistaril as ordered. BP is 116/80. Will continue to monitor.
--- NOTE | 2016-12-03 07:36 | NUR ---
End of Shift Note: Patient is a 61 y/o female admitted to [facility] on 11/27/16 for medically-supervised withdrawal from Valium, Subutex, and ETOH. Patient reported taking 40mg Valium, 1mg Subutex, and drinking five glasses of wine daily for six weeks. Patient completed a 5-day Valium taper, with last dose administered last night. Scheduled medication regime effectively managed s/s of withdrawal this shift, in addition to PRN clonidine for anxiety. Last COWS=2, CIWA=3 at 20:00. V/S stable throughout shift. Total fluid intake this shift: 791 ml; output: urine x 2 and BM x 1. Pt is currently in bed and slept 7 hours this shift. All needs attended and met. Pt endorsed to day shift nurse.
[2016-12-03 08:00] VITALS: BP 107/96
--- NOTE | 2016-12-03 08:00 | NUR ---
REASSESSMENT (CLONIDINE AND VISTARIL) Patient received PRN Clonidine and PRN Vistaril from lieutenant shift supervisor. Patient appears anxious at this time. Will notify MD as patient is asking for another medication for anxiety. Will continue to monitor patient.
[2016-12-03] MEDS: MULTIVITAMINS,THERAPEUTIC TABLET PO SCH (08:06)
[2016-12-03] MEDS: PSYLLIUM SEED PACKET PO SCH (08:07)
[2016-12-03] MEDS: GABAPENTIN 100 MG CAPSULE PO SCH ×3 (08:07→17:01)
[2016-12-03] MEDS: THIAMINE HCL 100 MG TABLET PO SCH (08:07)
[2016-12-03] MEDS: MODAFINIL 100 MG TABLET PO SCH (08:07)
[2016-12-03] MEDS: FOLIC ACID 1 MG TABLET PO SCH (08:07)
[2016-12-03] MEDS: ESCITALOPRAM OXALATE 10 MG TABLET PO SCH (08:07)
[2016-12-03] MEDS ORDERED: DIAZEPAM 5 MG TABLET PO ONE (08:30)
--- NOTE | 2016-12-03 08:40 | NUR ---
ONE TIME VALIUM Patient complained of anxiety, one time Valium was ordered and given to patient. Will monitor effectiveness of medication. CIWA = 6.
--- NOTE | 2016-12-03 09:40 | NUR ---
REASSESSMENT (ONE TIME VALIUM) Patient reports she has no anxiety and at ease. patient states medication was effective. CIWA = 0
--- NOTE | 2016-12-03 09:53 | NUR ---
START OF SHIFT Received report from machinist 2nd shift nurse. Patient is 61 year old female admitted for medically supervised withdrawal from alcohol, benzodiazepines, and buprenorphine. Patient is full code with allergies to quinolones, sulfa. On assessment this AM: CIWA: 6 and COWS: 2. Denies SOB, chest pain. vitals signs WNL. Reports increasing anxiety and agitation. Med compliant with AM meds. Patient was earlier seen at the nursing station during change of shift report talking to night charge nurse requesting to contact her doctor about her medications and appears anxious. After patient was assessed by this physician underwriter, was notified by change nurse with patient's current status. Patient received one time diazepam 5mg po. Patient was encouraged to attend group meetings today. Will continue to monitor patient.
[2016-12-03 12:00] VITALS: BP 116/70
--- NOTE | 2016-12-03 13:54 | NUR ---
PRN VISTARIL Patient complained of anxiety, PRN vistaril given. Will monitor effectiveness of medication.
[2016-12-03] MEDS: HYDROXYZINE PAMOATE 25 MG CAPSULE PO SCH ×3 (14:45→21:54)
--- NOTE | 2016-12-03 14:54 | NUR ---
REASSESSMENT (PRN VISTARIL) Patient reports anxiety resolved, med is effective.
[2016-12-03 16:00] VITALS: BP 100/67
--- NOTE | 2016-12-03 18:02 | NUR ---
PRN CLONIDINE Patient complained of anxiety, PRN clonidine given (BP 110/62). Will monitor effectiveness of medication.
--- NOTE | 2016-12-03 18:43 | NUR ---
END OF SHIFT 61 year old female admitted for medically supervised withdrawal from alcohol, benzodiazepines, and buprenorphine. Patient is full code with allergies to quinolones, sulfa. Most recent CIWA: 1 and COWS: 1. Patient reports vistaril and clonidine help with her anxiety. Patient received prn Vistaril, THE scheduled dose at 1445pm was held as discussed with MD. Med compliant with routine meds during this shift. Patient reports she has mild fracture on R foot prior to admission to [facility] and is using her boot stablizer during ambulation, pt. is independently ambulating. She was reminded to use the SCD machine but she is refusing at this time. Patient tolerating meals without n/v. clock assemblerprepared foods service team member will continue to monitor patient.
--- NOTE | 2016-12-03 19:02 | NUR ---
REASSESSMENT (PRN CLONIDINE) Patient reports anxiety resolved, med is effective.
--- NOTE | 2016-12-03 19:30 | NUR ---
Start of Shift Note: Report received from day shift nurse. Patient is a 61 y/o female admitted on 11/27/16 for medically-supervised withdrawal from benzodiazepines, Subutex, and ETOH. Patient reported taking 40mg Valium, 1mg Subutex, and drinking five glasses of wine daily for six weeks. Patient has completed a 5-day Ativan taper and is to discharge tomorrow. Patient received with last day shift COWS=1, CIWA=1; PRN Clonidine and Valium ONCE were given during day shift. Patient received in room, and reports anxiety. All safety precautions are in place. Will continue to monitor.
[2016-12-03 20:00] VITALS: BP 90/63
[2016-12-03] MEDS ORDERED: GABAPENTIN 100 MG CAPSULE PO SCH (21:00)
--- NOTE | 2016-12-04 | NUR ---
Vitals Refused, NATALIE Deferred: Patient refuses 00:00 V/S, states that she prefers to sleep. Patient educated on risks/benefits but continued to refuse. HEATHER/NIKHIL deferred for sleep. All safety precautions are in place. Will continue to monitor. Addendum: 12/04/16 at 0258 by JOHN ISSA RN Amended: Links added.
[2016-12-04] MEDS: HYDROXYZINE PAMOATE 25 MG CAPSULE PO SCH ×2 (03:42→06:27)
--- NOTE | 2016-12-04 04:00 | NUR ---
Vitals Refused, CIWA Deferred: Patient refuses 04:00 V/S. CIWA deferred for sleep. All safety precautions are in place. Will continue to monitor. Addendum: 12/04/16 at 0653 by JOHN ISSA RN Amended: Links added.
[2016-12-04] MEDS: DIPHENOXYLATE HCL/ATROP SULF TABLET PO SCH (06:27)
--- NOTE | 2016-12-04 07:00 | NUR ---
End of Shift Note: Patient is a 61YO female admitted to [facility] on 11/27/16 for medically-supervised withdrawal from Valium, Subutex, and ETOH. Patient reports taking 40mg Valium, 1mg Subutex, and drinking five glasses of wine daily for six weeks. Patient has completed a 5-day Valium taper and is to discharge today. Scheduled medication regime effectively managed s/s of withdrawal this shift, and no PRN medications were necessary. Last COWS=2, CIWA=2 at 20:00. V/S stable throughout shift. Total fluid intake this shift: 1250 ml; output: urine x 2 and BM x 0. Pt is currently in bed and slept 7 hours this shift. All needs attended and met. Pt endorsed to day shift nurse.
--- NOTE | 2016-12-04 07:10 | NUR ---
Start of shift note; Received report from night nurse. Patient is AOX4. Patient is a 61 year old female admitted on 11/27/16 for Benzodiazepine withdrawals. Patient was placed on a modified Valium taper, completed taper without any adverse reactions noted. Patient reported history of anxiety, appendectomy, double mastectomy and breast reconstruction, hysterectomy and fibroidectomy. Patient reported to be allergic to Sulfa drugs and Quinolones. Skin is intact. Patient's last COWS score is 2 and last CIWA is 1 at 0400 per nurse endorsement. Patient slept for 7 hours. Patient is medically cleared for discharge today. Patient is on fall and seizure precaution. Bed in lowest position, call light within reach. Will continue to monitor patient.
--- NOTE | 2016-12-04 07:30 | NUR ---
PRN medication; Patient is AOX4, appears to be agitated and anxious m/b patient pacing back and forth in the room. PRN Clonidine 0.1mg PO given for agitation and anxiety as per MD order. Will continue to monitor patient.
[2016-12-04] MEDS: CLONIDINE HCL 0.1 MG TABLET PO PRN (07:35)
[2016-12-04 08:00] VITALS: BP 128/75
[2016-12-04] MEDS: MODAFINIL 100 MG TABLET PO SCH (08:00)
[2016-12-04] MEDS: ESCITALOPRAM OXALATE 10 MG TABLET PO SCH (08:00)
[2016-12-04] MEDS: FOLIC ACID 1 MG TABLET PO SCH (08:00)
[2016-12-04] MEDS: MULTIVITAMINS,THERAPEUTIC TABLET PO SCH (08:00)
[2016-12-04] MEDS: PSYLLIUM SEED PACKET PO SCH (08:00)
[2016-12-04] MEDS: THIAMINE HCL 100 MG TABLET PO SCH (08:00)
[2016-12-04] MEDS: GABAPENTIN 100 MG CAPSULE PO SCH (08:01)
[2016-12-04 08:24] LABS: *AMPHETAMINE, URINE NEGATIVE (NEGATIVE); *BARBITURATE, URINE NEGATIVE (NEGATIVE); *CANNABINOID, URINE NEGATIVE (NEGATIVE); *COCCAINE, URINE NEGATIVE (NEGATIVE); *OPIATE, URINE NEGATIVE (NEGATIVE); *PHENCYCLIDINE SCREEN,URINE NEGATIVE (NEGATIVE)
--- NOTE | 2016-12-04 08:30 | NUR ---
Re-assessment; Patient appears calm and comfortable, stating effectiveness of medication. PRN medication is effective.
[2016-12-04] MEDS ORDERED: CLON0.1T14 PO (08:43)
[2016-12-04] MEDS ORDERED: HYDR-3895 PO (08:43)
[2016-12-04] MEDS ORDERED: GABA-532 PO ×2 (08:43)
--- NOTE | 2016-12-04 09:40 | NUR ---
Discharge medication; Patient is AOX4. All valuables, belongings, prescriptions given to patient. Patient completed treatment without any adverse reactions. Patient remained compliant with treatment. Patient's Vital signs are within normal limits. Patient left the hospital at exactly 0940 on 12/04/16. Patient left in a stable condition. Met all needs.
== END 2016-12-04 09:40 | disposition home or self-care (01) | DRG 895 ==
LOC: SRC 11-27 20:04
PROVIDERS: ADMIT Internal Medicine; ATTEND Internal Medicine
PROC: HZ2ZZZZ Detoxification Services for Substance Abuse Treatment (ICD-10-PCS; principal; 2016-11-27)
PROC: HZ31ZZZ Individual Counseling for Substance Abuse Treatment, Behavioral (ICD-10-PCS; 2016-11-29)
PROC: HZ41ZZZ Group Counseling for Substance Abuse Treatment, Behavioral (ICD-10-PCS; 2016-12-02)
DX: F10.230 Alcohol dependence with withdrawal, uncomplicated (principal); F13.230 Sedative, hypnotic or anxiolytic dependence with withdrawal, uncomplicated; Y90.9 Presence of alcohol in blood, level not specified; Z90.13 Acquired absence of bilateral breasts and nipples; Z80.9 Family history of malignant neoplasm, unspecified; K58.0 Irritable bowel syndrome with diarrhea; F32.9 Major depressive disorder, single episode, unspecified; F41.1 Generalized anxiety disorder; F11.23 Opioid dependence with withdrawal; Z79.899 Other long term (current) drug therapy
CPT/HCPCS: 36415; 70030-TC; 80307; 80346; 83690; 83735; 84443; 85025; 86580; 86705; 87340; 87806; G0480; Q0163

== ENCOUNTER 2017-04-13 11:20 | Inpatient (IN) | payer BC, OTHER ==
[~2017-04-13 11:20] MED LIST changes: +CLON0.1T14 PO; +ESCI10TA55 PO; +GABA-532 PO; +HYDR-3895 PO; +LOPE1TAB46 PO
[2017-04-13] MEDS ORDERED: MAG HYDROX/AL HYDROX/SIMETH 30 ML LIQUID UDC PO PRN (18:30)
[2017-04-13] MEDS ORDERED: IBUPROFEN 600 MG TABLET PO PRN (18:30)
[2017-04-13] MEDS ORDERED: LORAZEPAM 1 MG TABLET PO PRN ×2 (18:30)
[2017-04-13] MEDS ORDERED: LORAZEPAM 2 MG/1 ML VIAL IM PRN (18:30)
[2017-04-13] MEDS ORDERED: DICYCLOMINE HCL 20 MG TABLET PO PRN (18:30)
[2017-04-13] MEDS ORDERED: BUPRENORPHINE HCL 2 MG TAB.SUBL SL PRN (18:30)
[2017-04-13] MEDS ORDERED: ACETAMINOPHEN 325 MG TABLET PO PRN (18:30)
[2017-04-13] MEDS ORDERED: ONDANSETRON 4 MG/2 ML VIAL IM PRN (18:30)
[2017-04-13] MEDS ORDERED: CLONIDINE HCL 0.1 MG TABLET PO PRN (18:30)
[2017-04-13] MEDS ORDERED: ONDANSETRON ODT 4 MG TAB.RAPDIS SL PRN (18:30)
[2017-04-13] MEDS ORDERED: LOPERAMIDE HCL 2 MG CAPSULE PO PRN ×2 (18:30)
[2017-04-13] MEDS ORDERED: MIRALAX 17 GM POWD.PACK PO PRN (18:30)
[2017-04-13] MEDS ORDERED: diphenhydrAMINE 50 MG CAPSULE PO PRN (18:30)
[2017-04-13] MEDS ORDERED: THIAMINE HCL 200 MG/2 ML VIAL IM ONE (19:00)
[2017-04-13] MEDS ORDERED: GABAPENTIN 300 MG CAPSULE PO SCH (21:00)
[2017-04-13] MEDS ORDERED: LORAZEPAM 1 MG TABLET PO ONE (21:00)
[2017-04-14] MEDS ORDERED: TUBERCULIN,PURIF.PROT.DERIV. 5 TU/0.1 ML TEST ID ONE (09:00)
[2017-04-14] MEDS ORDERED: MULTIVITAMINS,THERAPEUTIC TABLET PO SCH (09:00)
[2017-04-14] MEDS ORDERED: THIAMINE HCL 100 MG TABLET PO SCH (09:00)
[2017-04-14] MEDS ORDERED: LORAZEPAM 1 MG TABLET PO SCH (09:00)
[2017-04-14] MEDS ORDERED: FOLIC ACID 1 MG TABLET PO SCH (09:00)
[2017-04-14] MEDS ORDERED: BUPRENORPHINE HCL 2 MG TAB.SUBL SL SCH (09:00)
[2017-04-15] MEDS ORDERED: BUPRENORPHINE HCL 2 MG TAB.SUBL SL SCH (09:00)
[2017-04-15] MEDS ORDERED: LORAZEPAM 1 MG TABLET PO SCH (09:00)
[2017-04-16] MEDS ORDERED: BUPRENORPHINE HCL 2 MG TAB.SUBL SL SCH ×2 (09:00→15:00)
[2017-04-16] MEDS ORDERED: LORAZEPAM 1 MG TABLET PO SCH (09:00)
[2017-04-17] MEDS ORDERED: LORAZEPAM 1 MG TABLET PO SCH (09:00)
[2017-04-18] MEDS ORDERED: BUPRENORPHINE HCL 2 MG TAB.SUBL SL SCH (09:00)
[2017-04-18] MEDS ORDERED: LORAZEPAM 1 MG TABLET PO SCH (09:00)
== END 2017-04-13 19:42 | disposition left against medical advice (07) | DRG 894 ==
LOC: SRC 18:18
PROVIDERS: ADMIT Internal Medicine; ATTEND Internal Medicine
DX: F10.239 Alcohol dependence with withdrawal, unspecified (principal); Z75.3 Unavailability and inaccessibility of health-care facilities

== ENCOUNTER 2017-04-16 07:59 | Inpatient (IN) | payer BC, OTHER ==
[~2017-04-16] VITALS: Ht 160 cm; Wt 49.9 kg
--- NOTE | 2017-04-16 09:23 | NUR ---
PRE ADMISSION Pt received in intake. Pt came from home. Pt alert and oriented to name, place, and time. Perrla. Respirations even and unlabored. Bilateral hand tremors noted slightly. Pt appears anxious and worried, with pressured speech noted. Pt appears slightly disheveled. ax=269/68 p=88 o2=97%@ra R=17. Educated pt on unit rules with acknowledgment. No distress noted at this time.
[2017-04-16] MEDS ORDERED: LOPERAMIDE HCL 2 MG CAPSULE PO PRN ×2 (09:30)
[2017-04-16] MEDS ORDERED: LORAZEPAM 1 MG TABLET PO PRN (09:30)
[2017-04-16] MEDS ORDERED: IBUPROFEN 600 MG TABLET PO PRN (09:30)
[2017-04-16] MEDS ORDERED: LORAZEPAM 2 MG/1 ML VIAL IM PRN (09:30)
[2017-04-16] MEDS ORDERED: CLONIDINE HCL 0.1 MG TABLET PO PRN (09:30)
[2017-04-16] MEDS ORDERED: ONDANSETRON 4 MG/2 ML VIAL IM PRN (09:30)
[2017-04-16] MEDS ORDERED: ACETAMINOPHEN 325 MG TABLET PO PRN (09:30)
[2017-04-16] MEDS ORDERED: diphenhydrAMINE 50 MG CAPSULE PO PRN (09:30)
[2017-04-16] MEDS ORDERED: THIAMINE HCL 200 MG/2 ML VIAL IM ONE (09:30)
[2017-04-16] MEDS ORDERED: MIRALAX 17 GM POWD.PACK PO PRN (09:30)
[2017-04-16] MEDS ORDERED: MAG HYDROX/AL HYDROX/SIMETH 30 ML LIQUID UDC PO PRN (09:30)
[2017-04-16] MEDS ORDERED: MAGNESIUM HYDROXIDE 30 ML LIQUID UDC PO PRN (09:30)
[2017-04-16] MEDS ORDERED: BUPRENORPHINE HCL 2 MG TAB.SUBL SL PRN (09:30)
--- NOTE | 2017-04-16 09:35 | NUR ---
ADMISSION Pt states came from home. Pt 62 y/o female admitted for vicodin, xanax, and etoh dependence. Pt alert and oriented to name, place, and time. Perrla. Respirations even and unlabored. Pt appears anxious and worried, with pressured speech noted during assessment. Pt appears slightly disheveled. Skin clear, warm and dry to touch. Bilateral hand tremors noted slightly. Pt also wth tearful episodes noted during interview. AS=163/68, P=88, R=18, O2=97%@ra, T=98.0. Pt with pmd Dr. Guan. Oriented pt to unit and room. Pt denies any sz history. No distress noted at this time. Pt states for medical history: breast Ca with mastectomy 2006, depression, and anxiety. Substance: - etoh wine 1/2 bottle daily x3 weeks. Last drink 04/16/17 and had 2 glasses. total 14 years. - xanax po 1-2mg daily x1 month. Last took 04/16/17 2mg. total 34 years. - vicodin po 50-80mg daily x 2months. Last took 04/16/17 5 mg. total 5 years. treatment hx: [facility] ( pt is unsure of the dates she was there) Addendum: 04/16/17 at 1301 by MARCOS RIVERS RN additional Initial cows=5 ciwa=7
[2017-04-16] MEDS ORDERED: ESCI20TA PO (09:44)
[2017-04-16 09:45] LABS: *URINE HCG, QUAL NEGATIVE (NEGATIVE)
[2017-04-16] MEDS ORDERED: ALPR2TAB7 PO (09:46)
[2017-04-16 09:55] LABS: *AMPHETAMINE, URINE NEGATIVE (NEGATIVE); *BARBITURATE, URINE POSITIVE (NEGATIVE); *CANNABINOID, URINE NEGATIVE (NEGATIVE); *COCCAINE, URINE NEGATIVE (NEGATIVE); *OPIATE, URINE POSITIVE (NEGATIVE); *PHENCYCLIDINE SCREEN,URINE NEGATIVE (NEGATIVE)
[2017-04-16 10:40] LABS: BILIRUBIN,TOTAL 0.3 mg/dL (0.2-1.0); CREATININE 0.8 mg/dL (0.6-1.3); MAGNESIUM 1.8 mg/dL (1.8-2.4); POTASSIUM 4.2 mmol/L (3.5-5.1); TOTAL PROTEIN, SERUM 7.7 g/dL (6.4-8.2)
[2017-04-16 10:42] LABS: BASOPHILS % (AUTO) 0.4 % (0.0-2.0); EOSINOPHILS % (AUTO) 0.3 % (0.0-7.0); HEMATOCRIT 41.6 % (37-47); HEMOGLOBIN 14.2 G/DL (12.0-16.0); MEAN CORPUSCULAR HEMOGLOBIN 29.9 UUG (27.0-31.0); MEAN CORPUSCULAR HGB CONC 34 g/dL (32.0-37.0); MEAN CORPUSCULAR VOLUME 87.5 FL (81.0-99.0); MONOCYTES # (AUTO) 0.4 K/UL (0.1-1.30); MONOCYTES % (AUTO) 5.6 % (0.0-11.0); NEUTROPHILS # (AUTO) 4.6 K/UL (1.8-8.9); NEUTROPHILS % (AUTO) 65.7 % (38.5-71.5); PLATELET COUNT (AUTO) 384 K/UL (150-450); RED BLOOD CELL COUNT(AUTO) 4.76 MIL/UL (4.2-5.4)
[2017-04-16 12:13] VITALS: BP 118/77
[2017-04-16] MEDS: METHOCARBAMOL 750 MG TABLET PO PRN ×2 (12:30→20:35)
--- NOTE | 2017-04-16 12:30 | NUR ---
PRN Pt states has body aches 6/10. Robaxin po prn per MD order given and tolerated well.
[2017-04-16] MEDS: ONDANSETRON ODT 4 MG TAB.RAPDIS SL PRN (12:31)
[2017-04-16] MEDS: LORAZEPAM 1 MG TABLET PO PRN (12:31)
--- NOTE | 2017-04-16 12:31 | NUR ---
ARTHUR QUEZADA Pt states does not feel nauseated at this time. Addendum: 04/16/17 at 1340 by MARCOS RIVERS RN incorrect time correct time= 1236
--- NOTE | 2017-04-16 12:31 | NUR ---
PRN Pt with c/o nausea. Zofran odt prn per MD order given and tolerated well.
--- NOTE | 2017-04-16 12:33 | NUR ---
PRN Pt with ciwa=8. Ativan 1mg po prn per MD order given and tolerated well.
--- NOTE | 2017-04-16 13:30 | NUR ---
PRN EVAL Pt states body aches 06/22.
--- NOTE | 2017-04-16 13:33 | NUR ---
PRN EVAL Pt with ciwa=3. Pt observed in room on bed with eyes closed resting, but easily arousable to name. No distress noted at this time.
[2017-04-16] MEDS: LORAZEPAM 1 MG TABLET PO SCH ×2 (14:16→20:35)
--- NOTE | 2017-04-16 14:30 | NUR ---
PRN Pt states nausea has come back. Zofran im prn per MD order given and tolerated well.
[2017-04-16] MEDS: DICYCLOMINE HCL 20 MG TABLET PO PRN (14:34)
--- NOTE | 2017-04-16 14:36 | NUR ---
PRN Pt with c/o stomach cramps. Bentyl po prn per MD order given and tolerated well.
[2017-04-16] MEDS ORDERED: GABAPENTIN 300 MG CAPSULE PO ONE (15:00)
--- NOTE | 2017-04-16 15:30 | NUR ---
PRN PILAR Pt observed in room on bed with eyes closed resting, but easily arousable to name. No distress noted. Pt denies any nausea at this time.
--- NOTE | 2017-04-16 15:36 | NUR ---
PRN PILAR Pt denies any stomach cramps at this time.
[2017-04-16 16:00] VITALS: BP 108/69
--- NOTE | 2017-04-16 18:49 | NUR ---
END OF SHIFT Pt 62 y/o female admitted for xanax, etoh, vicodin dependence. Pt alert and oriented to name, place, and time. Perrla. skin warm and slightly moist to touch. Respirations even and unlabored. Bilateral hand tremors noted slightly. Pt with periods of anxiety. Pt observed mostly isolative to room throughout the afternoon. Pt did not attend group activity. Pt was seen by MD today. Pt medication compliant and tolerated well. No ASE noted. Bed on lowest position with side rails x2 up for safety. Call light within reach. No distress noted at this time.
--- NOTE | 2017-04-16 19:00 | NUR ---
Start of Shift Patient Received. Patient is in her room, awake, alert and verbally responsive. Breathing even and non labored. Patient is a 62 year old female admitted 04/16/17 for Opiate and Benzo Dependence under the care of Dr. Donovan. Patient was started on 5 day Ativan and 5 day Subutex. Patient verbalizes allergies to Sulfa and Quinolones, DNR, following a Regular Diet, placed on fall and seizure precautions, and skin noted intact. Past medical history of Breast CA (2006) and Depression. No history of seizures noted. Per endorsement, patient was given PRN Ativan 1mg, Robaxin, Bentyl, and Zofran with medications noted to be effective. Last noted COWS 4 and CIWA 3. All needs attended to promptly. Will continue plan of care as ordered.
[2017-04-16 20:09] VITALS: BP 126/78
--- NOTE | 2017-04-16 20:35 | NUR ---
PRN Medication Administration Patient is verbalizing increase muscle spasms. PRN Robaxin administered as per order. Will continue to monitor.
[2017-04-16] MEDS: GABAPENTIN 300 MG CAPSULE PO SCH (20:36)
[2017-04-16] MEDS ORDERED: BUPRENORPHINE HCL 2 MG TAB.SUBL SL SCH (21:00)
--- NOTE | 2017-04-16 21:30 | NUR ---
PRN Medication Reassessment Patient noted in bed sleeping. Breathing even and non labored. No signs pain or discomfort noted. Patient was given PRN Robaxin with medication noted to be effective. Patient continues to sleep with no interruptions noted. Will continue to monitor.
[2017-04-17] VITALS (8 sets, daily range): BP systolic 101–146; BP diastolic 56–89
[2017-04-17] MEDS: LORAZEPAM 1 MG TABLET PO PRN (05:37)
[2017-04-17] MEDS: DICYCLOMINE HCL 20 MG TABLET PO PRN (05:51)
--- NOTE | 2017-04-17 06:02 | NUR ---
PRN Medication Reassessment Patient verbalizing increased anxiety, stomach cramps, and diarrhea. PRN Bentyl, Imodium, and Ativan 1mg for CIWA of 5 and COWS of 10. Will continue to monitor for effectiveness of medication. Addendum: 04/17/17 at 0604 by FELECIA MARIE LVN PRN Medication Administration
--- NOTE | 2017-04-17 07:23 | NUR ---
End of Shift Patient is in her room, awake, alert and verbally responsive. Breathing even and non labored. Patient is a 62 year old female admitted on 04/16/17 for Opiate and Benzo Dependence under the care of Dr. Donovan. Patient is currently receiving a 5 day Ativan and 5 day Subutex. Patient verbalizes allergies to Sulfa and Quinolones, DNR, following a Regular Diet, placed on fall and seizure precautions, and skin noted intact. Past medical history of Breast CA (2006) and Depression. No history of seizures noted. Patient received PRN Robaxin, Bentyl, Imodium, and PRN Ativan for CIWA of 5. Last noted COWS 5 and CIWA 6. All medications noted to be effective. All needs attended to promptly. Will endorse to continue plan of care as ordered.
--- NOTE | 2017-04-17 07:30 | NUR ---
START OF SHIFT NOTE 62 year old female, admitted 04/16/17 for Vicodin, ETOH, Xanax dependence. On 5 day Ativan and 5 day Subutex. Allergies to Sulfa and Quinolones. Code status DNR. Regular Diet. Fall and seizure precautions. Past medical history of Breast CA (2006) and Depression. No history of seizures noted. Received report from night RN. Pt received PRN Robaxin, PRN Ativan 1 mg PO, PRN Bentyl, PRN Immodium. Pt alert and oriented and at nurses station requesting her cell phone, lap top. RN will follow up for Pt on these items. . Bed in low and locked position, side rails up x2 and padded, call light within reach. Will continue to monitor.
[2017-04-17] MEDS: MULTIVITAMINS,THERAPEUTIC TABLET PO SCH (08:01)
[2017-04-17] MEDS: LORAZEPAM 1 MG TABLET PO SCH ×3 (08:01→21:02)
[2017-04-17] MEDS: GABAPENTIN 300 MG CAPSULE PO SCH ×2 (08:01→21:02)
--- NOTE | 2017-04-17 08:01 | NUR ---
PRN MEDICATION ADMINISTRATION Pt reporting having several loose stools this am. Given PRN Immodium. Will reassess.
[2017-04-17] MEDS: ESCITALOPRAM OXALATE 10 MG TABLET PO SCH (08:02)
[2017-04-17] MEDS: THIAMINE HCL 100 MG TABLET PO SCH (08:02)
[2017-04-17] MEDS: FOLIC ACID 1 MG TABLET PO SCH (08:02)
[2017-04-17] MEDS: TUBERCULIN,PURIF.PROT.DERIV. 5 TU/0.1 ML TEST ID ONE ×2 (08:03→08:22)
--- NOTE | 2017-04-17 08:15 | NUR ---
TB SKIN TEST REFUSED. TB skin test refused. client account manager notified. Documented on lab form in chart.
[2017-04-17] MEDS ORDERED: BUPRENORPHINE HCL 2 MG TAB.SUBL SL SCH (09:00)
--- NOTE | 2017-04-17 09:01 | NUR ---
PRN MEDICATION REASSESSMENT Pt reports loose stools have stopped after receiving PRN immodium at 0801.
[2017-04-17 09:06] LABS: HEPATITIS B SURFACE AG Negative (Negative)
--- NOTE | 2017-04-17 09:55 | NUR ---
SUBUTEX REFUSED At 0808, COWS 12. Pt refused PRN Subutex. 0950, Dr. Donovan notified of medication refusal.
--- NOTE | 2017-04-17 10:39 | NUR ---
NEW SUBUTEX ORDER ASTRID spoke with Dr. Donovan. states pt willing to take Subutex 2 mg[address] order. Addendum: 04/17/17 at 1045 by JERRI OROZCO RN Order pending. RN will follow up when places order and will administer medication at that time.
[2017-04-17] MEDS ORDERED: CLONIDINE HCL 0.1 MG TABLET PO ONE (10:45)
[2017-04-17] MEDS ORDERED: BUPRENORPHINE HCL 2 MG TAB.SUBL SL ONE (10:45)
[2017-04-17] MEDS ORDERED: CLONIDINE HCL 0.1 MG TABLET PO PRN (13:15)
[2017-04-17] MEDS: ONDANSETRON ODT 4 MG TAB.RAPDIS SL PRN (14:07)
--- NOTE | 2017-04-17 14:07 | NUR ---
ZOFRAN PRN GIVEN Pt reported of x1 episode of vomiting. Zofran 4mg SL PRN was given. Pt was encouraged increase fluid intake. Will continue to monitor.
--- NOTE | 2017-04-17 14:37 | NUR ---
PRN MEDICATION REASSESSMENT Pt received Zofran SL PRN at 1407 for emesis x 1. At 1437, pt denies nausea. No further emesis.
[2017-04-17] MEDS: BUPRENORPHINE HCL 2 MG TAB.SUBL SL SCH ×2 (15:00→21:00)
--- NOTE | 2017-04-17 15:15 | NUR ---
REFUSAL OF SUBUTEX. Pt refused 1500 scheduled dose of Subutex. She states she had emesis due to effect of Subutex. RN discussed nausea/vomiting as also a withdrawal symptom, however, pt insists emesis due to Subutex received earlier today. COWS at 1500 is 4. BP 117/76, pulse 78. Subutex not administered.
--- NOTE | 2017-04-17 19:00 | NUR ---
SUBUTEX REFUSAL Pt refused subutex scheduled dose at 1500. COWS at that time were 4. COWS [address] Donovan notified of pt refusal of subutex dose.
--- NOTE | 2017-04-17 19:24 | NUR ---
END OF SHIFT NOTE 62 year old female, admitted 04/16/17 for Vicodin, ETOH, Xanax dependence. On 5 day Ativan and 5 day Subutex. Allergies to Sulfa and Quinolones. Code status DNR. Regular Diet. Fall and seizure precautions. Past medical history of Breast CA (2006) and Depression. No history of seizures noted. PRNs given this shift as follows. PRN Immodium given at 0801 for frequent loose stools and at 0901 pt reported loose stools stopped. At 1407 Pt given PRN Zofran SL for emesis x 1. AT 1437, Pt states nausea relieved. PRN Subutex 4 mg SL refused by Pt for COWS [address] Donovan notified. Pt agreed to Subutex 2 mg SL after discussion with Dr. Donovan, administered at 1112. 1500 Scheduled dose of Subutex refused by patient, COWS at 1500 was 4. At 1700, COWS 1 and CIWA 2. Report given to night RN. Bed in low and locked position, side rails up x2 and padded, call light within reach.
--- NOTE | 2017-04-17 19:30 | NUR ---
Start of Shift Patient is a 62 year old female admitted on 04/16/17 for Opiate, ETOH, and Benzo detox. Patient is on a 5 day Ativan and Subutex taper. Patient has refused Subutex x 2. She now states she does not want to take Subutex any longer as it makes her feel too tired. notified. Last CIWA . She is a DNR, with allergies to sulfa and quinolones. Patient is on a regular diet. She is on fall and seizure precautions. Patient has PMH of Breast Cancer and Depression. At change of shift patient is resting in bed. She reiterated no longer wanting to take Subutex. Safety measures in place, Call light within reach, bed locked and in lowest position with 2 side rails up. Report received from AM nurse.
[2017-04-17] MEDS ORDERED: TRAZODONE 50 MG TABLET PO PRN (21:00)
--- NOTE | 2017-04-17 21:00 | NUR ---
Refusal of Medication Patient refused Subutex at 2100. Patient continues to state she does not want Subutex. Stating it makes her too tired.
--- NOTE | 2017-04-17 21:02 | NUR ---
PRN medication Patient with complaints of inability to sleep. Trazodone 50 mg PO PRN for sleep administered at 2101. Effect pending.
--- NOTE | 2017-04-17 22:02 | NUR ---
Reassessment of patient Patient reassessed one hour after PRN trazodone 50 mg administered for sleeplessness. Patient resting comfortably in bed with eyes closed. Breathing even and unlabored. Trazodone effective.
[2017-04-18] VITALS: BP 92/57
--- NOTE | 2017-04-18 04:00 | NUR ---
CIWA/COWS deferred Patient refused 0400 vital signs. COWS/CIWA deferred for sleep.
--- NOTE | 2017-04-18 06:45 | NUR ---
End of Shift Patient is a 62 year old female admitted on 04/16/17 for Opiate, ETOH, and Benzo detox. Patient is on a 5 day Ativan taper. Patient Refused Subutex at 2100. notified. Subutex taper discontinued. She is a DNR, with allergies to sulfa and Quinolones. Patient is on a regular diet. She is on fall and seizure precautions. Patient has PMH of Breast Cancer and Depression. Vital signs at 2000: BP 104/56, P 87, R 14, SPO2 97% on RA, T 96.9. COWS 2/ CIWA 3. Patient reported inability to sleep. PRN Trazodone 50 mg administered at 2102 with effectiveness. Patient vital signs at 0000 BP 92/57, P 79, R 12, SPO2 99% on RA. COWS 1, CIWA 2. Slept a total of 8 hours. Intake 2360 ml Output void x 4, BM x 1. Safety measures in place, Call light within reach, bed locked and in lowest position with 2 side rails up. Report given to AM nurse.
[2017-04-18 08:00] VITALS: BP 106/70
--- NOTE | 2017-04-18 08:10 | NUR ---
START OF SHIFT NOTE Received report from night nurse, 62 year old female admitted for Opiate and Benzo Dependence. Patient cont on 5 day Ativan. Patient has PMH of Breast CA (2006) and Depression. No history of seizures. Per endorsement pt was given PRN Trazodone, last CIWA score-1, COWS-1, Patient slept for 8 hours. Patient received awake,alert and oriented x4, Educated patient regarding plan of care for the day and medication regimen with good verbal understanding. Safety measures in place. call light with in reach, will continue to monitor.
[2017-04-18] MEDS: THIAMINE HCL 100 MG TABLET PO SCH (08:56)
[2017-04-18] MEDS: GABAPENTIN 300 MG CAPSULE PO SCH (08:56)
[2017-04-18] MEDS: FOLIC ACID 1 MG TABLET PO SCH (08:56)
[2017-04-18] MEDS: MULTIVITAMINS,THERAPEUTIC TABLET PO SCH (08:56)
[2017-04-18] MEDS: ESCITALOPRAM OXALATE 10 MG TABLET PO SCH (08:56)
[2017-04-18] MEDS ORDERED: LORAZEPAM 1 MG TABLET PO SCH ×2 (09:00→15:00)
[2017-04-18] MEDS ORDERED: BUPRENORPHINE HCL 2 MG TAB.SUBL SL SCH ×4 (09:00→15:00)
[2017-04-18 12:00] VITALS: BP 115/66
--- NOTE | 2017-04-18 13:35 | NUR ---
AMA NOTE Pt left AMA, Pt refused to comply with treatment plan. Pt educated about the risks and consequences of leaving AMA, pt verbalized understanding but was adamant about leaving. Multiple staff members including the doctor, patient advocates and nurses attempted to reason with the pt without any success. VS WNL. Skin intact, pt denies any suicidal or homicidal ideations. Pt MD were notified and aware. Pt was given a list of community resources, AMA forms explained and signed. All belongings returned to Pt. Pt left facility AMA on 04/18/17 at 1335.
[2017-04-19] MEDS ORDERED: LORAZEPAM 1 MG TABLET PO SCH ×2 (09:00)
[2017-04-19] MEDS ORDERED: BUPRENORPHINE HCL 2 MG TAB.SUBL SL SCH (09:00)
[2017-04-20] MEDS ORDERED: BUPRENORPHINE HCL 2 MG TAB.SUBL SL SCH (09:00)
[2017-04-20] MEDS ORDERED: LORAZEPAM 1 MG TABLET PO SCH (09:00)
[2017-04-21] MEDS ORDERED: BUPRENORPHINE HCL 2 MG TAB.SUBL SL SCH (09:00)
[2017-04-21] MEDS ORDERED: LORAZEPAM 1 MG TABLET PO SCH (09:00)
== END 2017-04-18 13:35 | disposition left against medical advice (07) | DRG 894 ==
LOC: SRC 08:43
PROVIDERS: ADMIT Internal Medicine; ATTEND Internal Medicine
PROC: HZ2ZZZZ Detoxification Services for Substance Abuse Treatment (ICD-10-PCS; principal; 2017-04-16)
PROC: HZ51ZZZ Individual Psychotherapy for Substance Abuse Treatment, Behavioral (ICD-10-PCS; 2017-04-17)
DX: F10.230 Alcohol dependence with withdrawal, uncomplicated (principal); F11.23 Opioid dependence with withdrawal; F13.230 Sedative, hypnotic or anxiolytic dependence with withdrawal, uncomplicated; Y90.9 Presence of alcohol in blood, level not specified; Z90.13 Acquired absence of bilateral breasts and nipples; Z87.81 Personal history of (healed) traumatic fracture; F41.9 Anxiety disorder, unspecified; Z88.1 Allergy status to other antibiotic agents; Z88.2 Allergy status to sulfonamides; Z91.89 Other specified personal risk factors, not elsewhere classified; F90.9 Attention-deficit hyperactivity disorder, unspecified type; Z81.8 Family history of other mental and behavioral disorders; F32.9 Major depressive disorder, single episode, unspecified; Z82.49 Family history of ischemic heart disease and other diseases of the circulatory system; Z82.0 Family history of epilepsy and other diseases of the nervous system; Z86.000 Personal history of in-situ neoplasm of breast; Z66 Do not resuscitate
CPT/HCPCS: 36415; 80307; 80345; 80346; 80361; 83735; 84703; 85025; 86580; 86592; 86705; 86803; 87340; 87806; A4663; G0480; J2405; J3411; Q0162